=== PATIENT | female | born 1970 | race Native Hawaiian/Other Pacific Islander ===

== ENCOUNTER 2020-10-15 09:17 | Outpatient (CLI) | payer OTHER | END 2020-10-15 22:07 | disposition home or self-care (01) | LOC: INF 09:17 | PROVIDERS: ATTEND Internal Medicine | DX: Z23 Encounter for immunization (principal) | CPT/HCPCS: 96372 ==

== ENCOUNTER 2020-11-06 11:39 | Outpatient (CLI) | payer OTHER | END 2020-11-06 22:21 | disposition home or self-care (01) | LOC: INF | PROVIDERS: ATTEND Internal Medicine | DX: Z23 Encounter for immunization (principal) | CPT/HCPCS: 96372 ==